=== PATIENT | male | born 1985 | race Caucasian/White ===

== ENCOUNTER 2018-09-10 14:03 | Emergency (ER) | payer OTHER ==
[~2018-09-10] VITALS: Ht 167.6 cm; Wt 68.0 kg
[~2018-09-10 14:03] MED LIST: ZYRTEC5 M1 PO
== END 2018-09-10 19:23 | disposition home or self-care (01) ==
LOC: ER 14:03 → CPU-OBS 14:44 → ER 14:44
DX: R06.02 Shortness of breath (principal)
CPT/HCPCS: G0378; G0379; 93005; 82805; 36600